=== PATIENT | female | born 1960 | race Caucasian/White ===

== ENCOUNTER 2019-03-07 12:17 | Emergency (ER) | payer OTHER ==
[~2019-03-07] VITALS: Ht 157.5 cm; Wt 58.2 kg
[2019-03-07] MEDS ORDERED: ROSU10TA22 PO (12:47)
[2019-03-07] MEDS ORDERED: LEVO50 PO (12:47)
[2019-03-07] MEDS ORDERED: SERT50TA12 PO (12:47)
[2019-03-07] MEDS ORDERED: IBUPROFEN 600 MG TABLET PO ONE (13:00)
[2019-03-07 13:56] VITALS: BP 100/65
== END 2019-03-07 14:57 | disposition home or self-care (01) ==
LOC: EMS 12:17
DX: S82.65XA Nondisplaced fracture of lateral malleolus of left fibula, initial encounter for closed fracture (principal); S80.211A Abrasion, right knee, initial encounter; F32.9 Major depressive disorder, single episode, unspecified; E78.00 Pure hypercholesterolemia, unspecified; E03.9 Hypothyroidism, unspecified; Z90.49 Acquired absence of other specified parts of digestive tract; Z91.041 Radiographic dye allergy status; W19.XXXA Unspecified fall, initial encounter; Y93.01 Activity, walking, marching and hiking; Y92.89 Other specified places as the place of occurrence of the external cause; Y99.8 Other external cause status
CPT/HCPCS: 29515